=== PATIENT | female | born 1955 | race Caucasian/White ===

== ENCOUNTER 2016-07-14 11:42 | Outpatient (CLI) | payer OTHER ==
[~2016-07-14] VITALS: Ht 162.6 cm; Wt 95.3 kg
[2016-07-14] MEDS ORDERED: ASCO-262 PO (15:00)
[2016-07-14] MEDS ORDERED: LOVA10TA PO (15:00)
[2016-07-14] MEDS ORDERED: CALC-6 PO (15:00)
[2016-07-14] MEDS ORDERED: OMG1KC PO (15:00)
[2016-07-14] MEDS ORDERED: FURO20TA4 PO (15:00)
[2016-07-14] MEDS ORDERED: VALA500T PO (15:00)
[2016-07-14] MEDS ORDERED: ESTR1TAB24 PO (15:00)
== END 2016-07-14 15:01 ==
LOC: PREOP 11:42
PROVIDERS: ATTEND Surgery
DX: Z01.818 Encounter for other preprocedural examination (principal); Z12.11 Encounter for screening for malignant neoplasm of colon

== ENCOUNTER 2016-07-15 09:33 | Day surgery (SDC) | payer OTHER ==
[~2016-07-15] VITALS: Ht 162.6 cm; Wt 95.3 kg
[~2016-07-15 09:33] MED LIST: ASCO-262 PO; CALC-6 PO; ESTR1TAB24 PO; FURO20TA4 PO; LOVA10TA PO; OMG1KC PO; VALA500T PO
[2016-07-15] MEDS ORDERED: NS IV 1000 ML 1,000 ML IV STA (09:43)
[2016-07-15] MEDS ORDERED: fentaNYL INJECTION 100 MCG/2 ML AMP IVP PRN (09:45)
[2016-07-15] MEDS ORDERED: NALOXONE 0.4 MG/ML 1 ML (NARCAN) VIAL IVP PRN (09:45)
[2016-07-15] MEDS ORDERED: FLUMAZENIL (ROMAZICON) 0.1 MG/ML 5 ML VIAL INJ PRN (09:45)
[2016-07-15] MEDS ORDERED: MIDAZOLAM 2 MG/2 ML (VERSED) VIAL IVP PRN (09:45)
[2016-07-15] MEDS ORDERED: NS IV 1000 ML 1,000 ML ONE (09:47)
[2016-07-15 10:12] VITALS: BP 144/89
[2016-07-15] MEDS ORDERED: proPOfol 200 MG/20 ML (DIPRIVAN) VIAL IV ONE (10:19)
[2016-07-15] MEDS ORDERED: MIDAZOLAM 2 MG/2 ML (VERSED) VIAL ONE (10:19)
--- NOTE | 2016-07-15 10:19 | Progress Note-Pre Operative ---
Pre-Operative Progress Note H&P Reviewed The H&P was reviewed, patient examined and no changes noted. Date H&P Reviewed: Jul 15, 2016 Time H&P Reviewed: 10:19 Pre-Operative Diagnosis: screening colonoscopy MICHELLE PYLE DO Jul 15, 2016 10:19 am
--- NOTE | 2016-07-15 11:04 | Progress Note-Post Operative ---
Post-Operative Progess Note Surgeon (s)/Html Developer (s) Surgeon MICHELLE PYLE DO Html Developer: none Pre-Operative Diagnosis screening colonoscopy Post-Operative Diagnosis normal colon Post-Op Procedure Note Date of Procedure: Jul 15, 2016 Name of Procedure Performed: colonoscopy Description of the Procedure: see note Findings of the Procedure see note Anesthesia Type per police captain Estimated blood loss (mL): none Specimen(s) collected/removed none MICHELLE PYLE DO Jul 15, 2016 11:04
[2016-07-15 11:05] VITALS: BP 129/76
--- NOTE | 2016-07-15 11:24 | Discharge Inst-Simple/Standard ---
Discharge Inst-Standard Patient Instructions/Follow Up Plan of Care/Instructions/FU: Patient to follow up with Dr. Mathews as needed. Will need colonscopy in 10 years or sooner if condition changes or changes in family history with colon cancer. Activity as Tolerated: Yes Discharge Diet: No Restrictions ELDON MCCORMACK APRN Jul 15, 2016 11:24
[2016-07-15 11:30] VITALS: BP 141/66
[2016-07-15 11:45] VITALS: BP 141/66
--- NOTE | 2016-07-15 13:02 | OPERATIVE REPORT ---
PROCEDURE PHYSICIAN: MICHELLE MATHEWS DATE OF PROCEDURE: 07/15/2016 PREOPERATIVE DIAGNOSIS: Screening colonoscopy. POSTOPERATIVE DIAGNOSES: Normal colon. PROCEDURE: Colonoscopy. SURGEON: Dr. Mathews. ANESTHESIA: Per ELECTRONIC COMMUNICATIONS TECHNICIAN. ESTIMATED BLOOD LOSS: None. COMPLICATIONS: None. INDICATIONS: The patient is a 61-year-old female due for screening colonoscopy. She understands the risks and benefits of the procedure and wished to proceed with procedure. Consent was signed on chart. PROCEDURE: The patient was taken to the endoscopy suite, placed in left lateral recumbent position. Timeout was performed. Digital rectal exam was performed. There were no palpable polyps, masses or ulcerations. The scope was inserted in the rectum and following way to the cecum with minimal difficulty. Prep was adequate. The scope was then slowly retracted back. There were no polyps, masses or ulcerations within the cecum, ascending, transverse, descending and sigmoid colon. In the rectum, the scope was also retroflexed noting no other pathology. The scope was returned to its normal position slowly withdrawn until completely removed. The patient tolerated the procedure well without any complications. She was taken to recovery room in stable condition. RECOMMENDATIONS: The patient will need repeat colonoscopy in 10 years unless family history of colon cancer which would then be 5 years. If she has any problems prior to that, she should be reevaluated at that time. Job ID: [id number] Dictated Date: 07/15/2016 11:06:00 Gis Technician Date: 07/15/2016 12:58:48 / krish
== END 2016-07-15 11:45 | disposition home or self-care (01) ==
LOC: DELPENDDIS → ENDO 09:33
PROVIDERS: ATTEND Surgery
DX: Z12.11 Encounter for screening for malignant neoplasm of colon (principal)